=== PATIENT | male | born 1985 ===

== ENCOUNTER 2020-08-27 03:02 | Emergency (ER) | payer OTHER ==
[~2020-08-27] VITALS: Ht 162.6 cm; Wt 90.9 kg
[2020-08-27 03:38] VITALS: BP 136/83
[2020-08-27 04:33] LABS: COVID AG,FIA SOURCE NASOPHARYNGEAL
[2020-08-27 04:51] LABS: APPEARANCE,URINE CLEAR (CLEAR); BILIRUBIN,URINE NEGATIVE (NEGATIVE); GLUCOSE, URINE (UA) NEGATIVE (NEGATIVE); KETONES,URINE NEGATIVE (NEGATIVE); LEUKOCYTE ESTERASE ,URINE TRACE (NEGATIVE); NITRATE,URINE NEGATIVE (NEGATIVE); OCCULT BLOOD,URINE NEGATIVE (NEGATIVE); PROTEIN,URINE NEGATIVE (NEGATIVE)
[2020-08-27 04:51] LABS: ANION GAP 10 mmol/L (8-16); BASOPHILS % (AUTO) 0.5 % (0.0-2.0); CALCIUM, TOTAL 9.1 mg/dL (8.8-10.5); CARBON DIOXIDE 27 mmol/L (22-29); CHLORIDE 101 mmol/L (98-107); CREATININE 1.12 mg/dL (0.60-1.30); EOSINOPHILS % (AUTO) 1.3 % (1.0-6.0); GLOMERULAR FILTR. RATE CALC > 60 mL/min (>60); GLUCOSE,RANDOM 95 mg/dL (70-110); HEMATOCRIT 42.2 % (41-53); HEMOGLOBIN 13.8 g/dL (13.5-17.5); MEAN CORPUSCULAR HEMOGLOBIN 27.8 pg (26.0-34.0); MEAN CORPUSCULAR HGB CONC 32.7 G/dL (31.0-37.0); MEAN CORPUSCULAR VOLUME 85 fL (80-100); MONOCYTES # (AUTO) 0.5 K/uL (0.1-1.0); MONOCYTES % (AUTO) 11.5 % (2.0-9.0); NEUTROPHILS # (AUTO) 2.1 K/uL (1.8-7.7); NEUTROPHILS % (AUTO) 43.7 % (40.0-70.0); PLATELET COUNT (AUTO) 273 K/uL (150-450); POTASSIUM 4.2 mmol/L (3.5-5.1); RED BLOOD CELL COUNT(AUTO) 4.97 MIL/uL (4.50-5.90); RED CELL DISTRIBUTION WIDTH 13.6 % (11.5-14.5); SODIUM SERUM 138 mmol/L (136-145); UREA NITROGEN, BLOOD 14 mg/dL (7-18)
[2020-08-27 04:57] LABS: ALANINE AMINOTRANSFERASE 39 U/L (12-78); ALBUMIN 4.1 g/dL (3.4-5.0); ALKALINE PHOSPHATASE 61 U/L (46-116); ASPARTATE AMINOTRANSFERASE 22 U/L (15-37); BILIRUBIN,TOTAL 0.4 mg/dL (0.1-1.0); LIPASE 213 U/L (73-393)
[2020-08-27 05:03] LABS: BACTERIA,URINE Few /HPF (None Seen); MUCUS,URINE Moderate LPF (None Seen); RBC,URINE 0-2 /HPF (0-2); SQUAMOUS EPITHELIAL CELL,UR Few /LPF (None Seen)
[2020-08-27] MEDS ORDERED: SODIUM CHLORIDE 0.9% 100 ML ONE (05:11)
[2020-08-27] MEDS ORDERED: IOVERSOL 350 MG/ML 100 ML VIAL ONE (05:11)
[2020-08-27] MEDS ORDERED: KETOROLAC TROMETHAMINE 30 MG/ML VIAL IVP ONE (05:45)
[2020-08-27] MEDS ORDERED: CEPHALEXIN MONOHYDRATE 500 MG CAPSULE PO ONE (06:15)
== END 2020-08-27 07:25 ==
LOC: EMS 03:04
DX: N28.89 Other specified disorders of kidney and ureter (principal); K76.89 Other specified diseases of liver; R82.81 Pyuria; Z20.822 Contact with and (suspected) exposure to COVID-19
CPT/HCPCS: 36415; 74177; 80053; 81001; 83690; 85025; 87086; 87426; 99285; J1885; J7050; Q9967